=== PATIENT | female | born 1950 | race Caucasian/White ===

== ENCOUNTER → 2020-08-18 | Outpatient (CLI) | payer MEDICARE ==
[~2020-08-18] MED LIST: BENICAR20 MG PO; BREO ELLIPTA 11 EACH INH; DESYREL 50 MG T50 MG PO; MOBIC15 MG PO; SYNTHROID150 MCG PO; TYLENOL 500 MG500 MG PO; VITAMIN D31000 UNI1 PO
== END ==
LOC: KOH-I 10:04
DX: Z00.01 Encounter for general adult medical examination with abnormal findings (principal); R91.1 Solitary pulmonary nodule; Z87.891 Personal history of nicotine dependence
CPT/HCPCS: 71271